=== PATIENT | male | born 1985 | race Caucasian/White ===

== ENCOUNTER 2018-01-15 09:23 | Emergency (ER) | payer SELFPAY ==
--- NOTE | 2018-01-15 09:44 | EDM.PDOC ---
ED HPI GENERAL MEDICAL PROBLEM - General Chief Complaint: Chest Pain Stated Complaint: CHEST PAIN Time Seen by Provider: 01/15/18 09:38 Source of Information: Reports: Patient History Limitations: Reports: No Limitations - History of Present Illness INITIAL COMMENTS - FREE TEXT/NARRATIVE: History of present illness: []Patient been having left-sided chest pain 4 days and has been continuous. He denies any fevers or chills he states he has a mild cough and the pain feels heavy like he can't take a full breath. Denies any shortness of breath with this however. Review of systems: As per history of present illness and below otherwise all systems reviewed and negative. Past medical history: As per history of present illness and as reviewed below otherwise noncontributory. Surgical history: As per history of present illness and as reviewed below otherwise noncontributory. Social history: No reported history of drug or alcohol abuse. Family history: As per history of present illness and as reviewed below otherwise noncontributory. Physical exam: General: Well developed, well nourished in NAD afebrile vital signs stable HEENT: Atraumatic, normocephalic, pupils reactive, negative for conjunctival pallor or scleral icterus, mucous membranes moist, throat clear, neck supple, nontender, trachea midline. Lungs: Rhonchi left base to auscultation, breath sounds equal bilaterally, chest nontender. No respiratory distress Heart: S1S2, regular, negative for clicks, rubs, or JVD. Abdomen: Soft, nondistended, nontender. Negative for masses or hepatosplenomegaly. Negative for costovertebral tenderness. Pelvis: Stable nontender. Genitourinary: Deferred. Rectal: Deferred. Extremities: Atraumatic, negative for cords or calf pain. Neurovascular unremarkable. Neuro: Awake, alert, oriented. Cranial nerves II through XII unremarkable. Cerebellum unremarkable. Motor and sensory unremarkable throughout. Exam nonfocal. Diagnostics: []CBC normal chemistry normal troponin negative chest x-ray negative signs stable, Therapeutics: [] Impression: []Acute bronchitis/early pneumonia Plan: []Zithromax. Definitive disposition and diagnosis as appropriate pending reevaluation and review of above. chest pain Pain Score (Numeric/FACES): 5 - Related Data Allergies Allergy/AdvReac Type Severity Reaction Status Date / Time No Known Allergies Allergy Verified 01/15/18 09:39 Home Meds: Home Meds Azithromycin [Zithromax] 250 mg PO DAILY #6 tab 01/15/18 [Rx] Past Medical History - Past Health History Medical/Surgical History: Denies Medical/Surgical History ED ROS GENERAL - Review of Systems Review Of Systems: See Below (See history of present illness) ED EXAM, GENERAL - Physical Exam Exam: See Below (See history of present illness) Course - Vital Signs Last Recorded V/S: Last Vital Signs Temp 96.5 F 01/15/18 09:40 Pulse 79 01/15/18 10:59 Resp 15 01/15/18 10:59 BP 124/85 01/15/18 10:59 Pulse Ox 95 01/15/18 10:59 - Orders/Labs/Meds Orders: Active Orders 24 hr Category Date Time Status Chest 2V [CR] Stat Exams 01/15/18 09:44 Taken Labs: Laboratory Tests 01/15/18 01/15/18 Range/Units 09:55 09:55 WBC 8.38 (4.0-11.0) K/uL RBC 4.37 L (4.50-5.90) M/uL Hgb 13.4 (13.0-17.0) g/dL Hct 39.1 (38.0-50.0) % MCV 89.5 (80.0-98.0) fL MCH 30.7 (27.0-32.0) pg MCHC 34.3 (31.0-37.0) g/dL RDW Std Deviation 40.2 (28.0-62.0) fl RDW Coeff of Nicole 13 (11.0-15.0) % Plt Count 273 (150-400) K/uL MPV 9.40 (7.40-12.00) fL Neut % (Auto) 76.8 (48.0-80.0) % Lymph % (Auto) 13.8 L (16.0-40.0) % [place] % (Auto) 6.7 (0.0-15.0) % Eos % (Auto) 2.3 (0.0-7.0) % Baso % (Auto) 0.4 (0.0-1.5) % Neut # (Auto) 6.4 H (1.4-5.7) K/uL Lymph # (Auto) 1.2 (0.6-2.4) K/uL [place] # (Auto) 0.6 (0.0-0.8) K/uL Eos # (Auto) 0.2 (0.0-0.7) K/uL Baso # (Auto) 0.0 (0.0-0.1) K/uL Nucleated RBC % 0.0 /100WBC Nucleated RBCs # 0 K/uL Sodium 144 (136-148) mmol/L Potassium 3.6 (3.5-5.1) mmol/L Chloride 109 H (98-107) mmol/L Carbon Dioxide 25.9 (21.0-32.0) mmol/L BUN 9 (7.0-18.0) mg/dL Creatinine 1.1 (0.8-1.3) mg/dL Est Cr Clr Drug Dosing 95.52 mL/min Estimated GFR (MDRD) > 60.0 ml/min Glucose 144 H (74-106) mg/dL Calcium 8.8 (8.5-10.1) mg/dL Total Bilirubin 0.4 (0.2-1.0) mg/dL AST 21 (15-37) IU/L ALT 27 (14-63) IU/L Alkaline Phosphatase 70 (46-116) U/L Troponin I < 0.050 (0.000-0.056) ng/mL Total Protein 6.6 (6.4-8.2) g/dL Albumin 3.9 (3.4-5.0) g/dL Globulin 2.7 (2.0-3.5) g/dL Albumin/Globulin Ratio 1.4 (1.3-2.8) Departure - Departure Time of Disposition: 11:14 Disposition: Home, Self-Care 01 Condition: Good Clinical Impression: Acute bronchitis Prescriptions: Azithromycin [Zithromax] 250 mg PO DAILY #6 tab Referrals: Emiliano Lama MD [Primary Care Provider] - Forms: ED Department Discharge Additional Instructions: The following information is given to patients seen in the emergency department who are being discharged to home. This information is to outline your options for follow-up care. We provide all patients seen in our emergency department with a follow-up referral. The need for follow-up, as well as the timing and circumstances, are variable depending upon the specifics of your emergency department visit. If you don't have a primary care physician on staff, we will provide you with a referral. We always advise you to contact your personal physician following an emergency department visit to inform them of the circumstance of the visit and for follow-up with them and/or the need for any referrals to a consulting specialist. The emergency department will also refer you to a specialist when appropriate. This referral assures that you have the opportunity for follow-up care with a specialist. All of these measure are taken in an effort to provide you with optimal care, which includes your follow-up. Under all circumstances we always encourage you to contact your private physician who remains a resource for coordinating your care. When calling for follow-up care, please make the office aware that this follow-up is from your recent emergency room visit. If for any reason you are refused follow-up, please contact the Emergency Department at and asked to speak to the emergency department charge nurse. Zithromax as directed increase fluids Tylenol Motrin for pain or fevers follow- up with primary care return if symptoms worsen or change. - My Orders Last 24 Hours: My Active Orders 01/15/18 09:44 Chest 2V [CR] Stat - Assessment/Plan Last 24 Hours: My Active Orders 01/15/18 09:44 Chest 2V [CR] Stat
[2018-01-15 10:47] LABS: CHLORIDE,CL 109 mmol/L (98-107); SODIUM,NA 144 mmol/L (136-148)
[2018-01-15 11:00] VITALS: BP 124/85
--- NOTE | 2018-01-15 11:19 | CR ---
EXAMINATION: Two-view chest (PA and Lateral views). HISTORY: Shortness of breath. FINDINGS: The trachea is midline. The cardiomediastinal silhouette is within normal limits. No pulmonary infilt rates, effusions or pneumothorax. Osseous structures appear unremarkable. IMPRESSION: No acute cardiopulmonary process.
== END 2018-01-15 11:24 | disposition home or self-care (01) ==
LOC: MW.ED 09:23
DX: J20.9 Acute bronchitis, unspecified (principal)
CPT/HCPCS: 36415; 71046; 71046-26; 80053; 84484; 85025; 93005; 99283; 99285-25

== ENCOUNTER 2018-03-03 13:27 | Emergency (ER) | payer MEDICAID, OTHER ==
[2018-03-03 13:36] VITALS: BP 107/68
[2018-03-03] MEDS ORDERED: LORazepam 1 MG Tab PO ONE (14:02)
--- NOTE | 2018-03-03 14:13 | EDM.PDOCBH ---
ED HPI GENERAL MEDICAL PROBLEM - General Chief Complaint: Behavioral/Psych Stated Complaint: AMB Time Seen by Provider: 03/03/18 14:06 Source of Information: Reports: Patient History Limitations: Reports: No Limitations - History of Present Illness INITIAL COMMENTS - FREE TEXT/NARRATIVE: HISTORY AND PHYSICAL: []32-year-old male presenting per EMS with a panic attack History of Present Illness: []He has been under increased stress over the last several weeks. Patient had been taking [id number] medication CRATUM Was in treatment for this. His son is visiting from [place] for the summer. He ran out of his Paxil and other mental health drugs 2 days ago. He is in some financial difficulty his ex-. Review of Systems: As per history of present illness and below otherwise all systems reviewed and negative. Past medical history: As per history of present illness and as reviewed below otherwise noncontributory. Surgical history: As per history of present illness and as reviewed below otherwise noncontributory. Social history: No reported history of drug or alcohol abuse. Family history: As per history of present illness and as reviewed below otherwise noncontributory. Physical exam: Alert and oriented answering questions appropriately speaking in full sentences no shortness of breath noted. He is nontoxic in appearance HEENT: Atraumatic, normocehpalic, pupils reactive, negative for conjunctival pallor or scleral icterus, mucous membranes moist, throat clear, neck supple, nontender, trachea midline. Lungs: Clear to auscultation, breath sounds equal bilaterally, chest non tender. Heart: S1S2, regular, negative for clicks, rubs, or JVD. Abdomen: Soft, nondistended, nontender. Negative for masses or hepatossplenmegaly. Negative for costovertebral tenderness. Pelvis: Stable nontender. Genitourinary: Deferred. Rectal: Deferred Extremities: Atraumatic, negative for cords or calf pain. Neurovascular unremarkable. Neuro: Awake, alert, oriented. Cranial nerves II through XII unremarkable. Cerebellum unremarkable. Motor and sensory unremarkable throughout. Exam nonfocal. He has tingling in his hands and fingers that has improved Have discussed with the patient and his that running out of all of these medications that he is taking at one time can cause significant difficulty. It increases panic attacks. Follow-up as soon as possible with services at [facility] Diagnostics: [] Therapeutics: []Ativan 1 mg by mouth Impression: []Panic attack likely with depression Ran out of his medication Plan: []Will discharge home His medication for 10 days Follow-up with [facility] has a crisis counselor available every day for walk-in patients You can try to obtain appt with Shakila Packer NP at [facility] she specializes in mental health concerns [address] [facility] [place] [address] Emergency room as directed and discussed Definitive disposition and diagnosis as appropriate pending reevaluation and review of above. Onset: Today, Sudden Duration: Chronic Location: Reports: Generalized Quality: Reports: Same as Previous Episode Severity: Severe Improves with: Reports: None Worsens with: Reports: None Associated Symptoms: Reports: Shortness of Breath - Related Data Allergies Allergy/AdvReac Type Severity Reaction Status Date / Time No Known Allergies Allergy Verified 03/03/18 13:36 Home Meds: Home Meds Cyclobenzaprine [Flexeril] 5 mg PO DAILY 03/03/18 [History] Cyclobenzaprine [Flexeril] 5 mg PO DAILY #10 tab 03/03/18 [Rx] PARoxetine HCl [Paxil] 20 mg PO DAILY #10 tablet 03/03/18 [Rx] PARoxetine [Paxil] 20 mg PO DAILY 03/03/18 [History] hydrOXYzine HCl [Atarax] 25 mg PO Q8H 03/03/18 [History] hydrOXYzine HCl [Atarax] 25 mg PO Q8H #30 tab 03/03/18 [Rx] risperiDONE 2 mg PO DAILY 03/03/18 [History] risperiDONE 2 mg PO DAILY #10 tablet 03/03/18 [Rx] Past Medical History - Past Health History Medical/Surgical History: Denies Medical/Surgical History - Infectious Disease History Infectious Disease History: Reports: Chicken Pox, MRSA - Past Surgical History Musculoskeletal Surgical History: Reports: Other (See Below) Other Musculoskeletal Surgeries/Procedures:: knee surgery Social & Family History - Family History Family Medical History: Noncontributory ED ROS GENERAL - Review of Systems Review Of Systems: ROS reveals no pertinent complaints other than HPI. ED EXAM, BEHAVIORAL HEALTH - Physical Exam Exam: See Below (see dictation) COURSE, BEHAVIORAL HEALTH COMP - Course Vital Signs: Last Vital Signs Temp 36.3 C 03/03/18 13:32 Pulse 82 03/03/18 13:32 Resp 18 03/03/18 13:32 BP 107/68 03/03/18 13:32 Pulse Ox 95 03/03/18 13:32 Orders, Labs, Meds: Medications Discontinued Medications Generic Name Dose Route Start Last Admin Trade Name Marco Antonio PRN Reason Stop Dose Admin Lorazepam 1 mg 03/03/18 14:02 03/03/18 14:15 Ativan PO 03/03/18 14:03 1 mg ONETIME ONE Administration Departure - Departure Time of Disposition: 14:14 Disposition: Home, Self-Care 01 Condition: Good Clinical Impression: Anxiety, Depressive disorder, Panic disorder - Discharge Information Prescriptions: Cyclobenzaprine [Flexeril] 5 mg PO DAILY #10 tab hydrOXYzine HCl [Atarax] 25 mg PO Q8H #30 tab PARoxetine HCl [Paxil] 20 mg PO DAILY #10 tablet risperiDONE 2 mg PO DAILY #10 tablet Instructions: Generalized Anxiety Disorder, Adult, Living With Anxiety Forms: ED Department Discharge Additional Instructions: The following information is given to patients seen in the emergency department who are being discharged to home. This information is to outline your options for follow-up care. We provide all patients seen in our emergency department with a follow-up referral. The need for follow-up, as well as the timing and circumstances, are variable depending upon the specifics of your emergency department visit. If you don't have a primary care physician on staff, we will provide you with a referral. We always advise you to contact your personal physician following an emergency department visit to inform them of the circumstance of the visit and for follow-up with them and/or the need for any referrals to a consulting specialist. The emergency department will also refer you to a specialist when appropriate. This referral assures that you have the opportunity for followup care with a specialist. All of these measure are taken in an effort to provide you with optimal care, which includes your followup. Under all circumstances we always encourage you to contact your private physician who remains a resource for coordinating your care. When calling for followup care, please make the office aware that this follow-up is from your recent emergency room visit. If for any reason you are refused follow-up, please contact the [facility] emergency department at and asked to speak to the emergency department charge nurse. []Will discharge home Refill His medication for 10 days Follow-up with [facility] has a crisis counselor available every day for walk-in patients You can try to obtain appt with Shakila Packer NP at [facility] she specializes in mental health concerns [address] [place] [id number] Emergency room as directed and discussed
== END 2018-03-03 15:30 | disposition home or self-care (01) ==
LOC: MW.ED 13:27
DX: F41.0 Panic disorder [episodic paroxysmal anxiety] (principal); F32.9 Major depressive disorder, single episode, unspecified; Z79.899 Other long term (current) drug therapy
CPT/HCPCS: 99283; A9270

== ENCOUNTER 2018-03-18 18:31 | Emergency (ER) | payer MEDICAID ==
[2018-03-18] MEDS ORDERED: Sodium Chloride 0.9% 1,000 ML IV ONE (18:40)
[2018-03-18] MEDS ORDERED: Sodium Chloride 0.9% 10 ML Syringe FLUSH PRN (18:40)
[2018-03-18] MEDS ORDERED: Sodium Chloride 0.9% 2.5 ML Syringe FLUSH PRN (18:40)
--- NOTE | 2018-03-18 18:45 | EDM.PDOC ---
ED HPI GENERAL MEDICAL PROBLEM - General Chief Complaint: Headache Stated Complaint: SEIZURE Time Seen by Provider: 03/18/18 18:38 Source of Information: Reports: Patient History Limitations: Reports: No Limitations - History of Present Illness INITIAL COMMENTS - FREE TEXT/NARRATIVE: HISTORY AND PHYSICAL: History of present illness: Angel is a 32-year-old male brought in by the EMS for seizure activity. Per EMS, patient was with his and kids and had stopped to get gas. While he was pumping gas he reportedly had a seizure that was witness by his . Patient was post-ictal when EMS arrived. He does not recall the episode and denies any dizziness, chest pain, SOB prior to the seizure. He denies any pain anywhere, he does not recall if he hit his head or not. He states he was feeling lightheaded and not well all day. He denies any alcohol or illicit drug use, no head injury prior to the episode, no fevers or chills. Patient has no previous history of seizures. states that she was checking on their dog in the backseat when she saw patient start fainting and convulsing while he was standing up. She helped lower him to the ground and rolled him to the side. She states it lasted 30 - 90 seconds. Review of systems: As per history of present illness and below otherwise all systems reviewed and negative. Past medical history: As per history of present illness and as reviewed below otherwise noncontributory. Surgical history: As per history of present illness and as reviewed below otherwise noncontributory. Social history: No reported history of drug or alcohol abuse. Family history: As per history of present illness and as reviewed below otherwise noncontributory. Physical exam: General: patient lying comfortably in no acute stress HEENT: Atraumatic, normocephalic, pupils reactive, negative for conjunctival pallor or scleral icterus, mucous membranes moist, throat clear, neck supple, nontender, trachea midline. Lungs: Clear to auscultation, breath sounds equal bilaterally, chest nontender. Heart: S1S2, regular, negative for clicks, rubs, or JVD. Abdomen: Soft, nondistended, nontender. Negative for masses or hepatosplenomegaly. Negative for costovertebral tenderness. Pelvis: Stable nontender. Genitourinary: Deferred. Rectal: Deferred. Extremities: Atraumatic, negative for cords or calf pain. Neurovascular unremarkable. Neuro: Awake, alert, oriented. Cranial nerves II through XII unremarkable. Cerebellum unremarkable. Motor and sensory unremarkable throughout. Exam nonfocal. Notes: Discussed with Dr. Arevalo at [facility] in [place], he recommends outpatient follow up for EEG and MRI. No anti-convulsants recommended and no driving until follow up. Diagnostics: CBC, CMP, Magnesium, Troponin, UA, urine drug screen, EtOH Head CT EKG Therapeutics: 1 L NS IV Impression: Syncope vs seizure Plan: #1 Follow up with neurology #2 Return to ED as needed as discussed Definitive disposition and diagnosis as appropriate pending reevaluation and review of above. - Related Data Allergies Allergy/AdvReac Type Severity Reaction Status Date / Time No Known Allergies Allergy Verified 03/18/18 18:33 Home Meds: Home Meds Cyclobenzaprine [Flexeril] 5 mg PO DAILY #10 tab 03/03/18 [Rx] PARoxetine [Paxil] 20 mg PO DAILY 03/03/18 [History] hydrOXYzine HCl [Atarax] 25 mg PO Q8H #30 tab 03/03/18 [Rx] risperiDONE 2 mg PO DAILY #10 tablet 03/03/18 [Rx] Past Medical History - Past Health History Medical/Surgical History: Denies Medical/Surgical History - Infectious Disease History Infectious Disease History: Reports: Chicken Pox, MRSA - Past Surgical History Musculoskeletal Surgical History: Reports: Other (See Below) Other Musculoskeletal Surgeries/Procedures:: knee surgery Social & Family History - Family History Family Medical History: Noncontributory ED ROS GENERAL - Review of Systems Review Of Systems: ROS reveals no pertinent complaints other than HPI. - Physical Exam Exam: See Below (See dictation) Course - Vital Signs Last Recorded V/S: Last Vital Signs Temp 37.0 C 03/18/18 18:36 Pulse 80 03/18/18 19:41 Resp 18 03/18/18 19:41 BP 133/71 03/18/18 19:41 Pulse Ox 99 03/18/18 19:41 - Orders/Labs/Meds Orders: Active Orders 24 hr Category Date Time Status EKG Documentation Completion [RC] STAT Care 03/18/18 20:09 Active Head wo Cont [CT] Stat Exams 03/18/18 18:42 Taken DRUG SCREEN, URINE [URCHEM] Stat Lab 03/18/18 19:35 Ordered UA W/MICROSCOPIC [URIN] Stat Lab 03/18/18 19:35 Ordered Sodium Chloride 0.9% [Saline Flush] Med 03/18/18 18:40 Active 10 ml FLUSH ASDIRECTED PRN Sodium Chloride 0.9% [Saline Flush] Med 03/18/18 18:40 Active 2.5 ml FLUSH ASDIRECTED PRN Saline Lock Insert [OM.PC] Stat Ot 03/18/18 18:39 Ordered Medication Orders Sodium Chloride (Saline Flush) 10 ml FLUSH ASDIRECTED PRN PRN Reason: Keep Vein Open Sodium Chloride (Saline Flush) 2.5 ml FLUSH ASDIRECTED PRN PRN Reason: Keep Vein Open Labs: Laboratory Tests 03/18/18 03/18/18 03/18/18 Range/Units 18:42 18:42 19:35 WBC 5.55 (4.0-11.0) K/uL RBC 4.69 (4.50-5.90) M/uL Hgb 14.3 (13.0-17.0) g/dL Hct 42.1 (38.0-50.0) % MCV 89.8 (80.0-98.0) fL MCH 30.5 (27.0-32.0) pg MCHC 34.0 (31.0-37.0) g/dL RDW Std Deviation 40.5 (28.0-62.0) fl RDW Coeff of Nicole 13 (11.0-15.0) % Plt Count 248 (150-400) K/uL MPV 8.90 (7.40-12.00) fL Neut % (Auto) 51.1 (48.0-80.0) % Lymph % (Auto) 33.5 (16.0-40.0) % Banner % (Auto) 11.0 (0.0-15.0) % Eos % (Auto) 4.0 (0.0-7.0) % Baso % (Auto) 0.4 (0.0-1.5) % Neut # (Auto) 2.8 (1.4-5.7) K/uL Lymph # (Auto) 1.9 (0.6-2.4) K/uL Banner # (Auto) 0.6 (0.0-0.8) K/uL Eos # (Auto) 0.2 (0.0-0.7) K/uL Baso # (Auto) 0.0 (0.0-0.1) K/uL Nucleated RBC % 0.0 /100WBC Nucleated RBCs # 0 K/uL Sodium 142 (136-148) mmol/L Potassium 4.1 (3.5-5.1) mmol/L Chloride 105 (98-107) mmol/L Carbon Dioxide 26.9 (21.0-32.0) mmol/L BUN 12 (7.0-18.0) mg/dL Creatinine 1.3 (0.8-1.3) mg/dL Est Cr Clr Drug Dosing 80.82 mL/min Estimated GFR (MDRD) > 60.0 ml/min Glucose 71 L (74-106) mg/dL Calcium 8.6 (8.5-10.1) mg/dL Magnesium 1.8 (1.8-2.4) mg/dL Total Bilirubin 0.2 (0.2-1.0) mg/dL AST 23 (15-37) IU/L ALT 33 (14-63) IU/L Alkaline Phosphatase 76 (46-116) U/L Troponin I < 0.050 (0.000-0.056) ng/mL Total Protein 6.8 (6.4-8.2) g/dL Albumin 4.0 (3.4-5.0) g/dL Globulin 2.8 (2.0-3.5) g/dL Albumin/Globulin Ratio 1.4 (1.3-2.8) Urine Color YELLOW Urine Appearance CLEAR Urine pH 6.0 (5.0-8.0) Ur Specific Woodland >= 1.030 (1.001-1.035) Urine Protein 30 (NEGATIVE) mg/dL Urine Glucose (UA) NEGATIVE (NEGATIVE) mg/dL Urine Ketones NEGATIVE (NEGATIVE) mg/dL Urine Occult Blood NEGATIVE (NEGATIVE) Urine Nitrite NEGATIVE (NEGATIVE) Urine Bilirubin NEGATIVE (NEGATIVE) Urine Urobilinogen 0.2 (<2.0) EU/dL Ur Leukocyte Esterase NEGATIVE (NEGATIVE) Urine RBC 0-2 (0-2/HPF) Urine WBC 1-5 (0-5/HPF) Ur Epithelial Cells OCCASIONAL (NONE-FEW) Urine Bacteria FEW (NEGATIVE) Urine Sperm FEW (NEGATIVE) Urine Opiates Screen (NEGATIVE) Ur Oxycodone Screen (NEGATIVE) Urine Methadone Screen (NEGATIVE) Ur Barbiturates Screen (NEGATIVE) Ur Phencyclidine Scrn (NEGATIVE) Ur Amphetamine Screen (NEGATIVE) U Methamphetamines Scrn (NEGATIVE) U Benzodiazepines Scrn (NEGATIVE) U Cocaine Metab Screen (NEGATIVE) U Marijuana (THC) Screen (NEGATIVE) Ethyl Alcohol < 3.0 mg/dL 03/18/18 Range/Units 19:35 WBC (4.0-11.0) K/uL RBC (4.50-5.90) M/uL Hgb (13.0-17.0) g/dL Hct (38.0-50.0) % MCV (80.0-98.0) fL MCH (27.0-32.0) pg MCHC (31.0-37.0) g/dL RDW Std Deviation (28.0-62.0) fl RDW Coeff of Nicole (11.0-15.0) % Plt Count (150-400) K/uL MPV (7.40-12.00) fL Neut % (Auto) (48.0-80.0) % Lymph % (Auto) (16.0-40.0) % Banner % (Auto) (0.0-15.0) % Eos % (Auto) (0.0-7.0) % Baso % (Auto) (0.0-1.5) % Neut # (Auto) (1.4-5.7) K/uL Lymph # (Auto) (0.6-2.4) K/uL Banner # (Auto) (0.0-0.8) K/uL Eos # (Auto) (0.0-0.7) K/uL Baso # (Auto) (0.0-0.1) K/uL Nucleated RBC % /100WBC Nucleated RBCs # K/uL Sodium (136-148) mmol/L Potassium (3.5-5.1) mmol/L Chloride (98-107) mmol/L Carbon Dioxide (21.0-32.0) mmol/L BUN (7.0-18.0) mg/dL Creatinine (0.8-1.3) mg/dL Est Cr Clr Drug Dosing mL/min Estimated GFR (MDRD) ml/min Glucose (74-106) mg/dL Calcium (8.5-10.1) mg/dL Magnesium (1.8-2.4) mg/dL Total Bilirubin (0.2-1.0) mg/dL AST (15-37) IU/L ALT (14-63) IU/L Alkaline Phosphatase (46-116) U/L Troponin I (0.000-0.056) ng/mL Total Protein (6.4-8.2) g/dL Albumin (3.4-5.0) g/dL Globulin (2.0-3.5) g/dL Albumin/Globulin Ratio (1.3-2.8) Urine Color Urine Appearance Urine pH (5.0-8.0) Ur Specific Woodland (1.001-1.035) Urine Protein (NEGATIVE) mg/dL Urine Glucose (UA) (NEGATIVE) mg/dL Urine Ketones (NEGATIVE) mg/dL Urine Occult Blood (NEGATIVE) Urine Nitrite (NEGATIVE) Urine Bilirubin (NEGATIVE) Urine Urobilinogen (<2.0) EU/dL Ur Leukocyte Esterase (NEGATIVE) Urine RBC (0-2/HPF) Urine WBC (0-5/HPF) Ur Epithelial Cells (NONE-FEW) Urine Bacteria (NEGATIVE) Urine Sperm (NEGATIVE) Urine Opiates Screen NEGATIVE (NEGATIVE) Ur Oxycodone Screen NEGATIVE (NEGATIVE) Urine Methadone Screen NEGATIVE (NEGATIVE) Ur Barbiturates Screen NEGATIVE (NEGATIVE) Ur Phencyclidine Scrn NEGATIVE (NEGATIVE) Ur Amphetamine Screen NEGATIVE (NEGATIVE) U Methamphetamines Scrn NEGATIVE (NEGATIVE) U Benzodiazepines Scrn NEGATIVE (NEGATIVE) U Cocaine Metab Screen NEGATIVE (NEGATIVE) U Marijuana (THC) Screen NEGATIVE (NEGATIVE) Ethyl Alcohol mg/dL Meds: Medications Generic Name Dose Route Start Last Admin Trade Name Freq PRN Reason Stop Dose Admin Sodium Chloride 10 ml 03/18/18 18:40 Saline Flush FLUSH ASDIRECTED PRN Keep Vein Open Sodium Chloride 2.5 ml 03/18/18 18:40 Saline Flush FLUSH ASDIRECTED PRN Keep Vein Open Discontinued Medications Generic Name Dose Route Start Last Admin Trade Name Freq PRN Reason Stop Dose Admin Sodium Chloride 1,000 mls @ 999 mls/hr 03/18/18 18:40 03/18/18 19:04 Normal Saline IV 03/18/18 19:40 999 mls/hr STAT ONE Administration Departure - Departure Time of Disposition: 20:27 Disposition: Home, Self-Care 01 Condition: Good Clinical Impression: Seizure-like activity - Discharge Information Forms: ED Department Discharge Additional Instructions: The following information is given to patients seen in the emergency department who are being discharged to home. This information is to outline your options for follow-up care. We provide all patients seen in our emergency department with a follow-up referral. The need for follow-up, as well as the timing and circumstances, are variable depending upon the specifics of your emergency department visit. If you don't have a primary care physician on staff, we will provide you with a referral. We always advise you to contact your personal physician following an emergency department visit to inform them of the circumstance of the visit and for follow-up with them and/or the need for any referrals to a consulting specialist. The emergency department will also refer you to a specialist when appropriate. This referral assures that you have the opportunity for follow-up care with a specialist. All of these measure are taken in an effort to provide you with optimal care, which includes your follow-up. Under all circumstances we always encourage you to contact your private physician who remains a resource for coordinating your care. When calling for follow-up care, please make the office aware that this follow-up is from your recent emergency room visit. If for any reason you are refused follow-up, please contact the [facility] Emergency Department at and asked to speak to the emergency department charge nurse. [facility] Neurology - Dr. Griffin [address] [facility] [address] [place] [id number] [address] discussed #2 Follow up with neurology #3 Return to ED as needed as discussed - My Orders Last 24 Hours: My Active Orders 03/18/18 18:39 Saline Lock Insert [OM.PC] Stat 03/18/18 18:40 Sodium Chloride 0.9% [Saline Flush] 10 ml FLUSH ASDIRECTED PRN Sodium Chloride 0.9% [Saline Flush] 2.5 ml FLUSH ASDIRECTED PRN 03/18/18 18:42 Head wo Cont [CT] Stat 03/18/18 19:35 DRUG SCREEN, URINE [URCHEM] Stat UA W/MICROSCOPIC [URIN] Stat 03/18/18 20:09 EKG Documentation Completion [RC] STAT - Assessment/Plan Last 24 Hours: My Active Orders 03/18/18 18:39 Saline Lock Insert [OM.PC] Stat 03/18/18 18:40 Sodium Chloride 0.9% [Saline Flush] 10 ml FLUSH ASDIRECTED PRN Sodium Chloride 0.9% [Saline Flush] 2.5 ml FLUSH ASDIRECTED PRN 03/18/18 18:42 Head wo Cont [CT] Stat 03/18/18 19:35 DRUG SCREEN, URINE [URCHEM] Stat UA W/MICROSCOPIC [URIN] Stat 03/18/18 20:09 EKG Documentation Completion [RC] STAT
[2018-03-18 19:18] LABS: CHLORIDE,CL 105 mmol/L (98-107); SODIUM,NA 142 mmol/L (136-148)
[2018-03-18 19:42] VITALS: BP 133/71
--- NOTE | 2018-03-19 17:53 | CT ---
EXAM DATE: 03/18/18 PATIENT'S AGE: 32 Patient: ALEXANDRIA TOMAS Facility: [place], [place] Site . Site : 1985 Study: CT Head [id number] 6:59:13 PM Ordering Physician: Doctor Allen Final Report: INDICATION: Pain. Seizure. TECHNIQUE: CT head without contrast. COMPARISON: None. FINDINGS: CSF spaces: Within normal limits for age. Brain parenchyma: The grijalva-white differentiation is normal. No sign of mass, hemorrhage, or midline shift. Skull base and calvarium: The visualized paranasal sinuses and mastoid air cells demonstrate no acute or significant findings. The visualized orbits are grossly unremarkable. No skull fractures. Small posterior parietal scalp contusion is present. IMPRESSION: Small posterior parietal scalp contusion. Otherwise unremarkable head CT. Please note that all CT scans at this facility use dose modulation, iterative reconstruction, and/or weight-based dosing when appropriate to reduce radiation dose to as low as reasonably achievable. Dictated by Valdez Encarnacion MD @ Mar 18 2018 7:46PM (Electronic Signature) Report Signed by Proxy. [employer] [facility]
== END 2018-03-18 20:40 | disposition home or self-care (01) ==
LOC: MW.ED 18:31
DX: R56.9 Unspecified convulsions (principal); Z79.899 Other long term (current) drug therapy
CPT/HCPCS: 36415; 70450; 80053; 80305; 81001; 83735; 84484; 85025; 93005; 96360; 99285; G0480; J7040

== ENCOUNTER 2021-05-08 16:35 | Emergency (ER) | payer OTHER, BC ==
--- NOTE | 2021-05-08 18:00 | CR ---
Indication: Injury and pain Technique: Right ankle 3 views. Comparison: None Findings: Bones: Alignment is normal. No fractures or bone lesions. Joint spaces: Unremarkable. Soft tissues: Unremarkable. Impression: No sign of acute injury. Dictated by Blayne Horton MD @ 05/08/2021 5:59:12 PM (Electronically Signed)
--- NOTE | 2021-05-08 18:12 | CR ---
Indication: Injury and pain Technique: Right foot 2 views Comparison: None Findings/Impression: Bones: There are acute minimally displaced fractures in the distal heads of the 2nd, 3rd and 4th metatarsals. Fracture may also be present in the lateral cortex of the distal head in the 1st metatarsal. Joint spaces: Unremarkable. Soft tissues: Moderate soft tissue swelling about the fractures. Dictated by Valdez Encarnacion MD @ 05/08/2021 6:12:17 PM (Electronically Signed)
--- NOTE | 2021-05-08 19:01 | EDM.PDOC ---
ED HPI GENERAL MEDICAL PROBLEM - General Chief Complaint: Lower Extremity Injury/Pain Stated Complaint: POSSIBLE BROKEN TOES Time Seen by Provider: 05/08/21 16:52 Source of Information: Reports: Patient History Limitations: Reports: No Limitations - History of Present Illness INITIAL COMMENTS - FREE TEXT/NARRATIVE: HISTORY AND PHYSICAL: History of present illness: Patient is a 35-year-old male who presents emergency room today with concern of right foot injury that occurred yesterday. Patient states that he was on a tin roof and states that he was on his buttocks about to get down. Patient states that he slipped and landed directly on his right foot. Patient states that he ended up collapsing to the ground but states he did not hit his head or lose consciousness and states he has no other injuries other than the foot. Patient states that he has wrapped it in an Stevie wrap but states that he has not been able to put much weight on it due to pain. Patient denies any other associated symptoms. Patient denies fever, chills, chest pain, shortness of breath, or cough. Denies headache, neck stiff ness, change in vision, syncope, or near syncope. Denies nausea, vomiting, abdominal pain, diarrhea, constipation, or dysuria. Has not noted any blood in urine or stool. Patient has been eating and drinking appropriately. Review of systems: As per history of present illness and below otherwise all systems reviewed and negative. Past medical history: As per history of present illness and as reviewed below otherwise noncontributory. Surgical history: As per history of present illness and as reviewed below otherwise noncontributory. Social history: See social history for further information Family history: As per history of present illness and as reviewed below otherwise noncontributory. Physical exam: General: Patient is alert, oriented, and in no acute distress. Patient sitting comfortably on exam table. Vitals stable and reviewed by me. HEENT: Atraumatic, normocephalic, pupils equal and reactive bilaterally, negative for conjunctival pallor or scleral icterus, mucous membranes moist, TMs normal bilaterally, throat clear, neck supple, nontender, trachea midline. No drooling or trismus noted. No meningeal signs. No hot potato voice noted. Lungs: Clear to auscultation, breath sounds equal bilaterally, chest nontender. Heart: S1S2, regular rate and rhythm without overt murmur Abdomen: Soft, nondistended, nontender. Negative for masses or hepatosplenomegaly. Negative for costovertebral tenderness. Pelvis: Stable nontender. Genitourinary: Deferred. Rectal: Deferred. Skin: Intact, warm, dry. No lesions or rashes noted. Extremities: Moderate edema noted to the dorsum of the right foot. Patient does have full range of motion of the right lower extremity but does have pain with range of motion of the digits of the right lower extremity. Dorsalis pedis and posterior tibial pulses are grossly intact with capillary refill less than 2 s econds. Intact sensation to light and deep touch of the complete right lower extremity. All compartments soft of the right lower extremity. Otherwise, atraumatic, negative for cords or calf pain. Neurovascular unremarkable. Neuro: Awake, alert, oriented. Cranial nerves II through XII unremarkable. Cerebellum unremarkable. Motor and sensory unremarkable throughout. Exam nonfocal. Notes: Strict return precautions thoroughly discussed with patient. Discussed importance for follow-up with a pad cutter/orthopedic provider. Voices understanding and is agreeable to plan of care. Denies any further questions or concerns at this time. Diagnostics: Foot and ankle x-ray, right Therapeutics: Posterior short splint and crutches Prescription: Tramadol Impression: Metatarsal fractures, right, second, third, fourth Plan: 1. Rest, ice, elevate the affected extremity. You can apply ice 15 minutes on, 15 minutes off. You are to be nonweightbearing until you follow-up with a pad cutter/orthopedic provider. Use the crutches and keep splint on until orthopedic/pad cutter evaluation. 2. Tylenol and/or Ibuprofen as directed for pain management or discomfort. Take medication as prescribed. Caution when taking this medication as it does cause drowsiness and sedation. Do not take this medication and operate any heavy equipment or drive any machinery or vehicles. Caution using this medication outside of the home. Caution as this medication does cause risk for increase in falls. Make sure to move slowly and assess how feeling with ambulation. 3. Follow up with the Orthopedic provider/pad cutter as discussed. Return to the ED as needed and as discussed. Definitive disposition and diagnosis as appropriate pending reevaluation and review of above. Left Ankle Pain Score (Numeric/FACES): 4 - Related Data Allergies Allergy/AdvReac Type Severity Reaction Status Date / Time aspirin Allergy Mild Hives Verified 05/08/21 16:58 Home Meds: Home Meds Cyclobenzaprine [Flexeril] 5 mg PO DAILY #10 tab 03/03/18 [Rx] traMADol [Ultram] 50 mg PO Q6H PRN #15 tab 05/08/21 [Rx] Past Medical History - Past Health History Medical/Surgical History: Denies Medical/Surgical History Neurological History: Reports: Other (See Below) Other Neuro History: [facility] Psychiatric History: Reports: Anxiety - Infectious Disease History Infectious Disease History: Reports: Chicken Pox, MRSA - Past Surgical History Musculoskeletal Surgical History: Reports: Other (See Below) Other Musculoskeletal Surgeries/Procedures:: knee surgery Social & Family History - Family History Family Medical History: No Pertinent Family History - Caffeine Use Caffeine Use: Reports: Coffee Review of Systems - Review of Systems Review Of Systems: Comprehensive ROS is negative, except as noted in HPI. ED EXAM, GENERAL - Physical Exam Exam: See Below (see dictation) Course - Vital Signs Last Recorded V/S: Last Vital Signs Temp 97.6 F 05/08/21 16:53 Pulse 72 05/08/21 19:25 Resp 18 05/08/21 19:25 BP 115/55 L 05/08/21 19:25 Pulse Ox 97 05/08/21 19:25 - Orders/Labs/Meds Orders: Active Orders 24 hr Category Date Time Status DME for Discharge [COMM] Stat Oth 05/08/21 18:59 Ordered Departure - Departure Time of Disposition: 18:59 Disposition: Home, Self-Care 01 Clinical Impression: Metatarsal fracture Qualifiers: Encounter type: initial encounter Metatarsal bone: unspecified metatarsal Fracture type: closed Fracture alignment: displaced Laterality: right Qualified Code(s): S92.301A - Fracture of unspecified metatarsal bone(s), right foot, initial encounter for closed fracture - Discharge Information Prescriptions: traMADol [Ultram] 50 mg PO Q6H PRN #15 tab PRN Reason: Pain (Severe 7-10) Instructions: Metatarsal Fracture Referrals: PCP,Not In Area [Primary Care Provider] - Forms: ED Department Discharge Additional Instructions: The following information is given to patients seen in the emergency department who are being discharged to home. This information is to outline your options for follow-up care. We provide all patients seen in our emergency department with a follow-up referral. The need for follow-up, as well as the timing and circumstances, are variable depending upon the specifics of your emergency department visit. If you don't have a primary care physician on staff, we will provide you with a referral. We always advise you to contact your personal physician following an emergency department visit to inform them of the circumstance of the visit and for follow-up with them and/or the need for any referrals to a consulting specialist. The emergency department will also refer you to a specialist when appropriate. This referral assures that you have the opportunity for follow-up care with a specialist. All of these measure are taken in an effort to provide you with optimal care, which includes your follow-up. Under all circumstances we always encourage you to contact your private physician who remains a resource for coordinating your care. When calling for follow-up care, please make the office aware that this follow-up is from your recent emergency room visit. If for any reason you are refused follow-up, please contact the [facility] Emergency Department at and asked to speak to the emergency department charge nurse. [facility], Dr. Wilson, Podiatry [address] [place] [address] [facility] - Orthopedic Clinic Professional Building [address] [place] [address], [address] [place] [address] Dr Landin, Orthopedist [facility] [address] [place] [address] Dr Leavitt - Dr Culver - Dr Corrales [facility] at [facility] [address] [place] [address] [facility] [address] [place] [address] 1. Rest, ice, elevate the affected extremity. You can apply ice 15 minutes on, 15 minutes off. You are to be nonweightbearing until you follow-up with a pad cutter/orthopedic provider. Use the crutches and keep splint on until orthopedic/pad cutter evaluation. 2. Tylenol and/or Ibuprofen as directed for pain management or discomfort. Take medication as prescribed. Caution when taking this medication as it does cause drowsiness and sedation. Do not take this medication and operate any heavy equipment or drive any machinery or vehicles. Caution using this medication outside of the home. Caution as this medication does cause risk for increase in falls. Make sure to move slowly and assess how feeling with ambulation. 3. Follow up with the Orthopedic provider/pad cutter as discussed. Return to the ED as needed and as discussed. Sepsis Event Note (ED) - Focused Exam Vital Signs: Vital Signs Temp Pulse Resp BP Pulse Ox 05/08/21 19:25 72 18 115/55 L 97 05/08/21 16:53 97.6 F 74 18 146/74 H 100 - My Orders Last 24 Hours: My Active Orders 05/08/21 18:59 DME for Discharge [COMM] Stat - Assessment/Plan Last 24 Hours: My Active Orders 05/08/21 18:59 DME for Discharge [COMM] Stat
[2021-05-08 19:41] VITALS: BP 115/55; PULSE 72
== END 2021-05-08 19:30 | disposition home or self-care (01) ==
LOC: MW.ED 16:35
DX: S92.321A Displaced fracture of second metatarsal bone, right foot, initial encounter for closed fracture (principal); S92.331A Displaced fracture of third metatarsal bone, right foot, initial encounter for closed fracture; S92.341A Displaced fracture of fourth metatarsal bone, right foot, initial encounter for closed fracture; Z88.8 Allergy status to other drugs, medicaments and biological substances; W18.40XA Slipping, tripping and stumbling without falling, unspecified, initial encounter
CPT/HCPCS: 29515; 73610-26-RT; 73610-RT; 73620-26-RT; 73620-RT; 99283-25